=== PATIENT | female | born 1965 | race Caucasian/White ===

== ENCOUNTER 2018-01-09 10:26 | Observation (INO) | payer OTHER ==
[~2018-01-09] VITALS: Ht 167.6 cm; Wt 105.0 kg
[~2018-01-09 10:26] MED LIST: ALBU6.7H INH; CIPR500T4 PO; CLON1 PO; CYCL-36 PO; ENBR50IN3 SQ; FIORTAB4 PO; GLUCTAB PO; LEVO.05 PO; LEVS0.124 SL; LORTA5 PO; LOVA20TA PO; MAGN250T3 PO; MAXA10TA4 PO; MONT10TA2 PO; MULTTAB4 PO; PROT40TA PO; PROZ20CA11 PO; SPIR50TA21 PO; SUCR1TAB PO; TRAM50; TYLE500T PO; VITA400D PO; WELL150T PO; ZOFR4TAB3 SL
[2018-01-09 10:28] VITALS: BP 149/96; PULSE 108; RESP 16; TEMP 98.4; O2SAT 97
[2018-01-09] MEDS ORDERED: LEVO50TA4 PO (10:58)
[2018-01-09] MEDS ORDERED: VITA1000 PO (10:58)
[2018-01-09] MEDS ORDERED: ALDA50TA2 PO (10:58)
[2018-01-09] MEDS ORDERED: TRAZ1TAB14 PO (10:58)
[2018-01-09] MEDS ORDERED: BUPR300T PO (10:58)
[2018-01-09] MEDS ORDERED: MELO15TA20 PO (10:58)
[2018-01-09] MEDS ORDERED: ESSE250T (10:58)
[2018-01-09] MEDS ORDERED: MAXA10TA2 (10:58)
[2018-01-09] MEDS ORDERED: CYCL10TA PO (10:58)
[2018-01-09] MEDS ORDERED: HYOS0.1261 (10:58)
[2018-01-09] MEDS ORDERED: FLUO1TAB3 PO (10:58)
[2018-01-09] MEDS ORDERED: DIVA500T3 PO (10:58)
[2018-01-09] MEDS ORDERED: TRAM50TA PO (10:58)
[2018-01-09] MEDS ORDERED: OMEP20TA93 PO (10:58)
[2018-01-09] MEDS ORDERED: MONT10TA4 PO (10:58)
[2018-01-09] MEDS ORDERED: CLON1TAB PO (10:58)
[2018-01-09] MEDS ORDERED: METF500T PO (10:58)
[2018-01-09] MEDS ORDERED: CLON0.1T PO (10:58)
[2018-01-09] MEDS ORDERED: LOVA20TA PO (10:58)
[2018-01-09] MEDS ORDERED: MULTTAB67 PO (10:58)
[2018-01-09] MEDS ORDERED: POTA540T (10:58)
--- NOTE | 2018-01-09 11:25 | PD ---
HPI Chief Complaint: Pain: Acute or Chronic Time Seen by Provider: 10:55 Travel History International Travel<30 days: No Contact w/Intl Traveler<30days: No Traveled to known affect area: No History of Present Illness HPI This is a 52-year-old female who has a history of remote DVT who presents to the emergency department with 4 days of right leg pain and swelling, constant, moderate severity, throbbing behind her thigh to the mid calf. She is not currently on any anticoagulation. She has felt a little bit lightheaded and dizzy but she is attributed this to her medications. She says she has had some dark schools but she has a history of ulcerative colitis. She does have a rash on her legs but she is not sure when that showed up. She denies any easy bleeding or bruising. REPLACED BY [facility] Past Medical History ADD: Yes Arthritis: Yes Anxiety: Yes Depression: Yes Cancer: No Coronary Artery Disease: Yes Diabetes: Yes Patient Takes Glucophage: No Diverticulitis: Yes Fibromyalgia: Yes Gastrointestinal Disorders: Yes (REFLUX, BARRETS, UC) GERD: Yes Headaches: Yes Immune Disorder: No Kidney Stones: Yes Musculoskeletal: Yes (FIBROMYALGIA, DJD, OSTEOARTHRITIS) Neurologic: Yes (NEUROPATHY, PRUITITS) Psychiatric: Yes (PTSD, OCD INSOMNIA) Reproductive: Yes (PCOS) Migraines: Yes Thyroid Disease: Yes Triglycerides - High: Yes Influenza Vaccination: No ?: Not Past Surgical History Abdominal Surgery: Yes (COLON RESECTION) Oral Surgery: Yes (TONSILLECTOMY) Tympanostomy Tube: Yes Other Surgery: Yes (NASAL RECONSTRUCTION) Social History Alcohol Use: No Tobacco Use: No Substance Use: No Allergies-Medications (Allergen,Severity, Reaction): Coded Allergies: Sulfa (Sulfonamide Antibiotics) (Unverified Allergy, Intermediate, HIVES, 07/14/17) Reported Meds & Prescriptions Reported Meds & Active Scripts Active Reported Trazodone (Trazodone HCl) 150 Mg Tablet 150 Mg PO HS Tramadol (Tramadol HCl) 50 Mg Tab 50 Mg PO Q8H PRN Aldactone (Spironolactone) 50 Mg Tab 50 Mg PO BIDPC Potassium Citrate ER (Potassium Citrate) 5 Meq (540 Mg) Tablet.er Omeprazole 20 Mg Tab 20 Mg PO DAILY Multiple Vitamin 1 Tab 1 Tab PO DAILY Montelukast (Montelukast Sodium) 10 Mg Tab 10 Mg PO HS Metformin (Metformin HCl) 500 Mg Tab 500 Mg PO BIDPC Meloxicam 15 Mg Tab 15 Mg PO DAILY Maxalt (Rizatriptan Benzoate) 10 Mg Tab Magnesium 250 Mg Tab Lovastatin 20 Mg Tab 20 Mg PO DAILY Levothyroxine (Levothyroxine Sodium) 50 Mcg Tab 50 Mcg PO DAILY Hyoscyamine Sulfate 0.125 Mg Sub Fluoxetine (Fluoxetine HCl) 20 Mg Tab 20 Mg PO BID Divalproex ER (Divalproex Sodium) 500 Mg Tab 500 Mg PO DAILY Vitamin D-1000 (Cholecalciferol) 1,000 Unit Tab 1,000 Units PO DAILY Flexeril (Cyclobenzaprine HCl) 10 Mg Tab 10 Mg PO TID Clonidine (Clonidine HCl) 0.1 Mg Tab 0.1 Mg PO BID Clonazepam 1 Mg Tab 1 Mg PO TID Bupropion HCl ER 24 HR (Bupropion HCl) 300 Mg Tab 300 Mg PO DAILY Review of Systems Except as stated in HPI: all other systems reviewed are Neg Physical Exam Narrative GENERAL:Well appearing, no acute distress SKIN: Petechial rash over the bilateral lower extremities worse on the right. HEAD: Atraumatic. Normocephalic. EYES: Pupils equal and round. No injection or drainage. ENT: Moist mucous membranes NECK: Trachea midline. CARDIOVASCULAR: Regular rate and rhythm. No murmur appreciated. 2+ bilateral DP pulses with normal capillary refill. RESPIRATORY: Clear to auscultation. Breath sounds equal bilaterally. GASTROINTESTINAL: Abdomen soft, non-tender, nondistended. MUSCULOSKELETAL: Tender to palpation along the right posterior knee and posterior right calf NEUROLOGICAL: Awake and alert. No obvious cranial nerve deficits. Moving all extremities. PSYCHIATRIC: Appropriate mood and affect; insight and judgment normal. Data Data Last Documented VS Vital Signs Date Time Temp Pulse Resp B/P (MAP) Pulse Ox O2 Delivery O2 Flow Rate FiO2 01/09/18 10:28 98.4 108 16 149/96 (113) 97 Orders Orders Complete Blood Count With Diff (01/09/18 11:03) Comprehensive Metabolic Panel (01/09/18 11:03) Prothrombin Time / Inr (Pt) (01/09/18 11:03) Act Partial Throm Time (Ptt) (01/09/18 11:03) Us Leg Venous Doppler (01/09/18 ) ^ Insert Iv (01/09/18 11:03) Ct Pulmonary Angiogram (01/09/18 ) Labs Laboratory Tests Test 01/09/18 11:10 White Blood Count 6.5 TH/MM3 Red Blood Count 4.53 MIL/MM3 Hemoglobin 12.4 GM/DL Hematocrit 38.6 % Mean Corpuscular Volume 85.3 FL Mean Corpuscular Hemoglobin 27.4 PG Mean Corpuscular Hemoglobin Concent 32.1 % Red Cell Distribution Width 16.8 % Platelet Count 202 TH/MM3 Mean Platelet Volume 8.3 FL Neutrophils (%) (Auto) 68.3 % Lymphocytes (%) (Auto) 20.4 % Monocytes (%) (Auto) 7.2 % Eosinophils (%) (Auto) 3.5 % Basophils (%) (Auto) 0.6 % Neutrophils # (Auto) 4.4 TH/MM3 Lymphocytes # (Auto) 1.3 TH/MM3 Monocytes # (Auto) 0.5 TH/MM3 Eosinophils # (Auto) 0.2 TH/MM3 Basophils # (Auto) 0.0 TH/MM3 CBC Comment DIFF FINAL Differential Comment Prothrombin Time 10.2 SEC Prothromb Time International Ratio 1.0 RATIO Activated Partial Thromboplast Time 23.6 SEC Blood Urea Nitrogen 12 MG/DL Creatinine 1.02 MG/DL Random Glucose 89 MG/DL Total Protein 7.7 GM/DL Albumin 3.5 GM/DL Calcium Level 9.1 MG/DL Alkaline Phosphatase 86 U/L Aspartate Amino Transf (AST/SGOT) 17 U/L Alanine Aminotransferase (ALT/SGPT) 9 U/L Total Bilirubin 0.3 MG/DL Sodium Level 139 MEQ/L Potassium Level 3.8 MEQ/L Chloride Level 102 MEQ/L Carbon Dioxide Level 30.8 MEQ/L Anion Gap 6 MEQ/L Estimat Glomerular Filtration Rate 57 ML/MIN [facility] Medical Decision Making Medical Screen Exam Complete: Yes Emergency Medical Condition: Yes Interpretation(s) Afebrile, tachycardic No leukocytosis Electrolytes are reassuring Last 24 hours Impressions Lower Extremity Ultrasound 01/09/18 0000 Signed Impressions: Service Date/Time: Tuesday, January 09, 2018 11:34 - CONCLUSION: Positive DVT as described Sabino Duncan MD Differential Diagnosis Cellulitis, thrombocytopenia, DVT, pulmonary embolism Narrative Course This is a 52-year-old female who presents to the emergency department with right calf pain and leg pain. She has a history of remote DVT and has family history of factor V Leiden deficiency. Labs were obtained which were reassuring. Ultrasound demonstrates a DVT in the right lower extremity. Patient does acknowledge on review of systems that she has been somewhat short of breath and she was tachycardic on arrival. CT pulmonary angiogram will be obtained. Patient will be dispositioned by Abena Santiago MD Jan 09, 2018 11:25
[2018-01-09 11:28] LABS: AUTOMATED NEUTROPHIL # 4.4 TH/MM3 (1.8-7.7); BASOPHIL % 0.6 % (0.0-2.0); EOSINOPHIL # 0.2 TH/MM3 (0-0.4); EOSINOPHIL % 3.5 % (0.0-4.0); HEMATOCRIT 38.6 % (35.0-46.0); HEMOGLOBIN 12.4 GM/DL (11.6-15.3); LYMPH % 20.4 % (9.0-44.0); LYMPHOCYTE # 1.3 TH/MM3 (1.0-4.8); MEAN CELL VOLUME 85.3 FL (80.0-100.0); MEAN CORPUSCULAR HEMOGLOBIN 27.4 PG (27.0-34.0); MEAN CORPUSCULAR HGB CONC 32.1 % (32.0-36.0); MEAN PLATELET VOLUME 8.3 FL (7.0-11.0); MONO % 7.2 % (0.0-8.0); MONOCYTE # 0.5 TH/MM3 (0-0.9); NEUT % 68.3 % (16.0-70.0); PLATELET COUNT 202 TH/MM3 (150-450); RED BLOOD COUNT 4.53 MIL/MM3 (4.00-5.30); RED CELL DISTRIBUTION WIDTH 16.8 % (11.6-17.2); WHITE BLOOD COUNT 6.5 TH/MM3 (4.0-11.0)
[2018-01-09 11:37] LABS: PROTHROMBIN TIME - PATIENT 10.2 SEC (9.8-11.6)
[2018-01-09 11:42] LABS: ALBUMIN 3.5 GM/DL (3.4-5.0); AST (GOT) 17 U/L (15-37); BICARBONATE 30.8 MEQ/L (21.0-32.0); BLOOD UREA NITROGEN 12 MG/DL (7-18); CALCIUM 9.1 MG/DL (8.5-10.1); CHLORIDE 102 MEQ/L (98-107); CREATININE 1.02 MG/DL (0.50-1.00); GLOMERULAR FILTRATION RATE 57 ML/MIN (>89); GLUCOSE,RANDOM 89 MG/DL (74-106); SODIUM (NA) 139 MEQ/L (136-145)
[2018-01-09 11:43] LABS: ALT (GPT) 9 U/L (10-53)
[2018-01-09 11:45] LABS: ALKALINE PHOSPHATASE 86 U/L (45-117); TOTAL BILIRUBIN ADULT 0.3 MG/DL (0.2-1.0); TOTAL PROTEIN 7.7 GM/DL (6.4-8.2)
--- NOTE | 2018-01-09 12:00 | RADRPT ---
EXAM DATE/TIME: 01/09/2018 11:34 [facility] COMPARISON: No previous studies available for comparison. INDICATIONS : Right leg swelling and pain. MEDICAL HISTORY : Diverticulitis. Renal calculi. Osteoarthritis. Thyroid disease. Neuropathy. Pruititis. Migraines. Coronary artery disease. Hyperlipidemia. Melendez's esophagus. fibromyalgia. arthritis. disc degenerat ion disease. diabetes. gerd. pcos. insomnia. ptsd. anxiety. SURGICAL HISTORY : Tonsillectomy. Colon resection. Tympanostomy tube. Left knee and left hand orthopedic surgery. Nasa l reconstruction. ENCOUNTER: Initial ACUITY: 4 - 6 days PAIN SCORE: 6/10 LOCATION: Right leg. TECHNIQUE: Venous ultrasound of the leg was performed from the inguinal ligament to the proximal calf. Real-tez e, color Doppler and spectral tracing, compression and augmentation techniques were used. FINDINGS: Deep venous thrombosis which is extensive extending from the superficial femoral vein and kidney post erior tibial vein portions of which aren't fully occlusive including superficial femoral vein and pos terior tibial vein and partial in other areas CONCLUSION: Positive DVT as described Sabino Duncan MD on January 09, 2018 at 11:56 Board Certified Radiologist. This report was verified electronically.
[2018-01-09] MEDS ORDERED: IOHEXOL 350 MG/ML 10 ML VIAL (for RAD DIAG) IVCONTRAST ONE (14:00)
--- NOTE | 2018-01-09 14:28 | RADRPT ---
EXAM DATE/TIME: 01/09/2018 13:58 [facility] COMPARISON: No previous studies available for comparison. INDICATIONS : Shortness of breath. IV CONTRAST: 66 cc Omnipaque 350 (iohexol) IV RADIATION DOSE: 11.02 CTDIvol (mGy) MEDICAL HISTORY : Gastroesophageal reflux disease. diabetes, deep vein thrombosis SURGICAL HISTORY : Colon resection. ENCOUNTER: Initial ACUITY: 1 day PAIN SCALE: 0/10 LOCATION: Bilateral chest TECHNIQUE: Volumetric scanning of the chest was performed using a pulmonary embolism protocol MIP images were re constructed. Using automated exposure control and adjustment of the mA and/or kV according to patien t size, radiation dose was kept as low as reasonably achievable to obtain optimal diagnostic quality images. DICOM format image data is available electronically for review and comparison. Follow-up recommendations for detected pulmonary nodules are based at a minimum on nodule size and pa tient risk factors according to Fleischner Society Guidelines. FINDINGS: PULMONARY ARTERIES: There are multiple emboli in the right lower lobe pulmonary artery without total obstruction. LUNGS: There is no consolidation or pneumothorax . No concerning pulmonary nodule is visualized. PLEURAE: There is no pleural thickening or pleural effusion. MEDIASTINUM: There is good visualization of the great vessels of the middle mediastinum. No evidence of mediastin al or hilar adenopathy/mass. MUSCULOSKELETAL: Within normal limits for patient age. MISCELLANEOUS: The visualized upper abdominal organs demonstrate no acute abnormality. CONCLUSION: Positive for pulmonary embolization right lower lobe pulmonary artery. Sabino Duncan MD on January 09, 2018 at 14:21 Board Certified Radiologist. This report was verified electronically.
[2018-01-09] MEDS ORDERED: RIVAROXABAN 15 MG TAB PO ONE (15:30)
--- NOTE | 2018-01-09 15:34 | PD ---
Data Data Last Documented VS Vital Signs Date Time Temp Pulse Resp B/P (MAP) Pulse Ox O2 Delivery O2 Flow Rate FiO2 01/09/18 10:28 98.4 108 16 149/96 (113) 97 Orders Orders Complete Blood Count With Diff (01/09/18 11:03) Comprehensive Metabolic Panel (01/09/18 11:03) Prothrombin Time / Inr (Pt) (01/09/18 11:03) Act Partial Throm Time (Ptt) (01/09/18 11:03) Us Leg Venous Doppler (01/09/18 ) ^ Insert Iv (01/09/18 11:03) Ct Pulmonary Angiogram (01/09/18 ) Iohexol 350 Inj (Omnipaque 350 Inj) (01/09/18 14:00) Rivaroxaban (Xarelto) (01/09/18 15:30) Admit Order (Ed Use Only) (01/09/18 ) Labs Laboratory Tests Test 01/09/18 11:10 White Blood Count 6.5 TH/MM3 Red Blood Count 4.53 MIL/MM3 Hemoglobin 12.4 GM/DL Hematocrit 38.6 % Mean Corpuscular Volume 85.3 FL Mean Corpuscular Hemoglobin 27.4 PG Mean Corpuscular Hemoglobin Concent 32.1 % Red Cell Distribution Width 16.8 % Platelet Count 202 TH/MM3 Mean Platelet Volume 8.3 FL Neutrophils (%) (Auto) 68.3 % Lymphocytes (%) (Auto) 20.4 % Monocytes (%) (Auto) 7.2 % Eosinophils (%) (Auto) 3.5 % Basophils (%) (Auto) 0.6 % Neutrophils # (Auto) 4.4 TH/MM3 Lymphocytes # (Auto) 1.3 TH/MM3 Monocytes # (Auto) 0.5 TH/MM3 Eosinophils # (Auto) 0.2 TH/MM3 Basophils # (Auto) 0.0 TH/MM3 CBC Comment DIFF FINAL Differential Comment Prothrombin Time 10.2 SEC Prothromb Time International Ratio 1.0 RATIO Activated Partial Thromboplast Time 23.6 SEC Blood Urea Nitrogen 12 MG/DL Creatinine 1.02 MG/DL Random Glucose 89 MG/DL Total Protein 7.7 GM/DL Albumin 3.5 GM/DL Calcium Level 9.1 MG/DL Alkaline Phosphatase 86 U/L Aspartate Amino Transf (AST/SGOT) 17 U/L Alanine Aminotransferase (ALT/SGPT) 9 U/L Total Bilirubin 0.3 MG/DL Sodium Level 139 MEQ/L Potassium Level 3.8 MEQ/L Chloride Level 102 MEQ/L Carbon Dioxide Level 30.8 MEQ/L Anion Gap 6 MEQ/L Estimat Glomerular Filtration Rate 57 ML/MIN MDM Supervised Visit with JORDIN: No Narrative Course 51-year-old woman with suspicion for DVT, fund of a DVT and ultrasound, also some shortness of breath on the PE. History of DVT in the past. Family history of factor V Leiden. We will plan on Xarelto, admission, close monitoring. Diagnosis Primary Impression: Pulmonary embolism Admitting Information Admitting Physician Requests: Observation Pee Stevenson MD Jan 09, 2018 15:34
--- NOTE | 2018-01-09 16:33 | HHI.HP ---
HPI Service [facility] Hospitalists Primary Care Physician Tevin Han III, MD Admission Diagnosis Pulmonary embolus Chief Complaint: RLE swelling Travel History International Travel<30 Days: No Contact w/Intl Traveler <30 Da: No Traveled to Known Affected Are: No History of Present Illness Mrs. Bell is a pleasant 52 y/o WF with Hx of DVT around 18 years ago thought to be related to being on OCP and sedentary at that time, Hypothyroidism, Hyperlipidemia, GERD, Anxiety/depression who [place] [facility] complaints of RLE swelling and pain. She reports that the symptoms began around 4 days ago when she had worsening right LE swelling and throbbing behind her thigh to the mid calf. Pt states that she has been more sedentary recently at work, sitting for 5-6 hours at a time on the computer. Her half sister was recently diagnosed with Factor V Leiden but she has not had workup for this yet. Pt denies any personal hx of cancer. In the ED RLE US revealed an extensive DVT extending from the superficial femoral vein and posterior tibial vein portions of which aren't fully occlusive. She had reported to the ED physician some mild SOB and was noted to be tachycardiac at admission so Pulmonary angiogram was performed which was positive for pulmonary embolization right lower lobe pulmonary artery. Pt is being admitted to monitoring overnight. She was given a dose of Xarelto in the ED but pt would rather be on Eliquis as her takes the same medication so she knows she can afford the copay. Pt reports that when she had her previous DVT 18 years ago she was on Coumadin. Review of Systems Constitutional: DENIES: Fever, Chills, Dizziness, Change in appetite Eyes: DENIES: Vision loss Ears, nose, mouth, throat: DENIES: Hearing loss Respiratory: COMPLAINS OF: Shortness of breath, DENIES: Cough Cardiovascular: COMPLAINS OF: Lower Extremity Edema, DENIES: Chest pain Gastrointestinal: DENIES: Abdominal pain, Constipation, Nausea, Vomiting Genitourinary: DENIES: Hematuria, Dysuria Musculoskeletal: COMPLAINS OF: Joint pain Integumentary: COMPLAINS OF: Rash Neurologic: DENIES: Headache Psychiatric: DENIES: Confusion Past Family Social History Past Medical History GERD Melendez's esophagus Hx of UC Allergic rhinitis Fibromyalgia Osteoarthritis ?Rheumatoid arthritis, ?Sjgren's syndrome, pt follows with Dr. 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 Spinal stenosis Neuropathy thought to be related to nerve impingement per the pt Migraine headaches Hx of kidney stones Hx of DVT around 18 years ago thought to be related to being on OCP and sedentary at that time Hypothyroidism Hyperlipidemia PCOS Hx of esophageal stricture s/p dilation Zenker's diverticulum ADD OCD Insomnia Past Surgical History Tonsillectomy Left hand ganglion cyst removal Left knee mass removal, reportedly benign Partial colectomy Septoplasty Left foot plantar fasciotomy Reported Medications -Omeprazole 20 Mg PO DAILY -Multiple Vitamin 1 Tab PO DAILY -Montelukast 10 Mg PO HS -Metformin 500 Mg PO BIDPC for PCOS -Maxalt (Rizatriptan Benzoate) 10 Mg Tab PRN Migraines -Magnesium 250 Mg Tab -Lovastatin 20 Mg Tab 20 Mg PO DAILY -Levothyroxine 50 Mcg PO DAILY -Hyoscyamine Sulfate 0.125 Mg Sub -Fluoxetine 20 Mg PO BID for depression/anxiety/PTSD -Divalproex ER 500 Mg PO DAILY for migraines -Flexeril 10 Mg PO TID -Clonidine 0.1 Mg PO HS for night sweats -Clonazepam 1 Mg PO TID -Bupropion HCl ER 24 HR 300 Mg PO DAILY --Trazodone 200 Mg PO HS for insomnia --Tramadol 50 Mg PO Q8H for fibromyalgia and osteoarthritis --Aldactone 100 Mg PO DAILY --Potassium Citrate 10MG PO BID --Meloxicam 15 Mg PO HS --Vitamin D 4,000 Unit PO DAILY Allergies: Coded Allergies: Sulfa (Sulfonamide Antibiotics) (Unverified Allergy, Intermediate, HIVES, 07/14/17) Family History Sister with recently diagnosed Factor V Leiden Social History No reported alcohol or tobacco use Physical Exam Vital Signs Vital Signs Date Time Temp Pulse Resp B/P (MAP) Pulse Ox O2 Delivery O2 Flow Rate FiO2 01/09/18 10:28 98.4 108 16 149/96 (113) 97 Physical Exam GENERAL: This is a well-nourished, well-developed patient, in no apparent distress. HEENT: Atraumatic. Normocephalic. No temporal or scalp tenderness. No scleral icterus. Airway patent. NECK: Trachea midline, supple, nontender, no meningeal signs. CARDIO: Regular RESP: CTA bilaterally. No wheezes, rales, or rhonchi. ABD: +BS, soft, non-tender, nondistended. EXT: RLE edema and tenderness with palpation of the right calf NEURO: Awake and alert. Motor and sensory grossly within normal limits. Normal speech. Laboratory Laboratory Tests Test 01/09/18 11:10 White Blood Count 6.5 Red Blood Count 4.53 Hemoglobin 12.4 Hematocrit 38.6 Mean Corpuscular Volume 85.3 Mean Corpuscular Hemoglobin 27.4 Mean Corpuscular Hemoglobin Concent 32.1 Red Cell Distribution Width 16.8 Platelet Count 202 Mean Platelet Volume 8.3 Neutrophils (%) (Auto) 68.3 Lymphocytes (%) (Auto) 20.4 Monocytes (%) (Auto) 7.2 Eosinophils (%) (Auto) 3.5 Basophils (%) (Auto) 0.6 Neutrophils # (Auto) 4.4 Lymphocytes # (Auto) 1.3 Monocytes # (Auto) 0.5 Eosinophils # (Auto) 0.2 Basophils # (Auto) 0.0 CBC Comment DIFF FINAL Differential Comment Prothrombin Time 10.2 Prothromb Time International Ratio 1.0 Activated Partial Thromboplast Time 23.6 Blood Urea Nitrogen 12 Creatinine 1.02 Random Glucose 89 Total Protein 7.7 Albumin 3.5 Calcium Level 9.1 Alkaline Phosphatase 86 Aspartate Amino Transf (AST/SGOT) 17 Alanine Aminotransferase (ALT/SGPT) 9 Total Bilirubin 0.3 Sodium Level 139 Potassium Level 3.8 Chloride Level 102 Carbon Dioxide Level 30.8 Anion Gap 6 Estimat Glomerular Filtration Rate 57 Result Diagram: 01/09/18 1110 01/09/18 1110 Imaging Last Impressions Lower Extremity Ultrasound 01/09/18 0000 Signed Impressions: Service Date/Time: Tuesday, January 09, 2018 11:34 - CONCLUSION: Positive DVT as described Sabino Duncan MD CT Angiography 01/09/18 0000 Signed Impressions: Service Date/Time: Tuesday, January 09, 2018 13:58 - CONCLUSION: Positive for pulmonary embolization right lower lobe pulmonary artery. MD Andrey Snowden VTE Risk Assessment Caprini VTE Risk Assessment: Mod/High Risk (score >= 2) Caprini Risk Assessment Model Point Value = 1 Point Value = 2 Point Value = 3 Point Value = 5 Age 41-60 Minor surgery BMI > 25 kg/m2 Swollen legs Varicose veins or History of unexplained or recurrent spontaneous Oral contraceptives or hormone replacement Sepsis (< 1 month) Serious lung disease, including pneumonia (< 1 month) Abnormal pulmonary function Acute myocardial infarction Congestive heart failure (< 1 month) History of inflammatory bowel disease Medical patient at bed rest Age 61-74 Arthroscopic surgery Major open surgery (> 45 min) Laparoscopic surgery (> 45 min) Malignancy Confined to bed (> 72 hours) Immobilizing plaster cast Central venous access Age >= 75 History of VTE Family history of VTE Factor V Leiden Prothrombin [id number] Lupus anticoagulant Anticardiolipin antibodies Elevated serum homocysteine Heparin-induced thrombocytopenia Other congenital or acquired thrombophilia Stroke (< 1 month) Elective arthroplasty Hip, pelvis, or leg fracture Acute spinal cord injury (< 1 month) Prophylaxis Regimen Total Risk Factor Score Risk Level Prophylaxis Regimen 0-1 Low Early ambulation 2 Moderate Order ONE of the following: *Sequential Compression Device (SCD) *Heparin 5000 units SQ BID 3-4 Higher Order ONE of the following medications: *Heparin 5000 units SQ TID *Enoxaparin/Lovenox 40 mg SQ daily (WT < 150 kg, CrCl > 30 mL/min) *Enoxaparin/Lovenox 30 mg SQ daily (WT < 150 kg, CrCl > 10-29 mL/min) *Enoxaparin/Lovenox 30 mg SQ BID (WT < 150 kg, CrCl > 30 mL/min) AND/OR *Sequential Compression Device (SCD) 5 or more Highest Order ONE of the following medications: *Heparin 5000 units SQ TID (Preferred with Epidurals) *Enoxaparin/Lovenox 40 mg SQ daily (WT < 150 kg, CrCl > 30 mL/min) *Enoxaparin/Lovenox 30 mg SQ daily (WT < 150 kg, CrCl > 10-29 mL/min) *Enoxaparin/Lovenox 30 mg SQ BID (WT < 150 kg, CrCl > 30 mL/min) AND *Sequential Compression Device (SCD) Assessment and Plan Problem List: (1) Pulmonary embolism ICD Codes: I26.99 - Other pulmonary embolism without acute cor pulmonale Status: Acute Plan: Pulmonary Embolism RLE DVT - Pt is a 52 y/o WF with Hx of DVT around 18 years ago thought to be related to being on OCP and sedentary at that time, Hypothyroidism, Hyperlipidemia, GERD, Anxiety/depression who [place] [facility] with complaints of RLE swelling and pain. - Symptoms began around 4 days ago when she had worsening right LE swelling and throbbing behind her thigh to the mid calf. Pt states that she has been more sedentary recently at work, sitting for 5-6 hours at a time on the computer. Her half sister was recently diagnosed with Factor V Leiden but she has not had workup for this yet. - RLE US revealed an extensive DVT extending from the superficial femoral vein and posterior tibial vein portions of which aren't fully occlusive. - She had reported to the ED physician some mild SOB and was noted to be tachycardiac at admission so pulmonary angiogram was performed which was positive for pulmonary embolization right lower lobe pulmonary artery. - She was given a dose of Xarelto in the ED but pt would rather be on Eliquis as her takes the same medication so she knows she can afford the copay. - Start Eliquis 10mg BID x 7 days, tomorrow at 0600. After 7 days she will be decreased to 5mg po BID dosing - Pt is not currently requiring supplemental O2 at rest. Walk test in AM - PT evaluation in AM - Supportive care Hypothyroidism - Home meds resumed GERD - PPI Anxiety/Depression OCD PTSD - Home meds resumed Fibromyalgia - Home meds resumed (2) DVT (deep venous thrombosis) ICD Codes: I82.409 - Acute embolism and thrombosis of unspecified deep veins of unspecified lower extremity (3) Anxiety and depression ICD Codes: F41.8 - Other specified anxiety disorders (4) GERD (gastroesophageal reflux disease) ICD Codes: K21.9 - Gastro-esophageal reflux disease without esophagitis (5) Hx of migraine headaches ICD Codes: Z86.69 - Personal history of other diseases of the nervous system and sense organs Assessment and Plan Patient examined. Assessment and plan formulated with Gabrielle Torres PA-C. I agree with the above. rle dvt. right lung PE. pt claims more sedentary remote hx dvt and 6m coumadin sister with factor v leiden eliquis bid. walk test tomorrow. d/c tomorrow if stable. Problem Qualifiers (1) Pulmonary embolism: Qualified Codes: I26.99 - Other pulmonary embolism without acute cor pulmonale Gabrielle Torres Jan 09, 2018 16:32 Levar Solano MD Jan 09, 2018 17:16
[2018-01-09] MEDS ORDERED: ACETAMINOPHEN 325 MG TAB PO PRN (16:45)
[2018-01-09] MEDS ORDERED: ONDANSETRON HCL 4 MG/2 ML VIAL IV PRN (16:45)
[2018-01-09] MEDS ORDERED: TRAZ100T10 PO (17:20)
[2018-01-09 17:53] VITALS: BP 141/76
[2018-01-09] MEDS: clonazePAM 1 MG TAB PO SCH (17:58)
[2018-01-09] MEDS ORDERED: CYCLOBENZAPRINE HCL 10 MG TAB PO SCH (18:00)
[2018-01-09 20:34] VITALS: BP 115/66; PULSE 90; RESP 18; TEMP 97.9; O2SAT 92
[2018-01-09 20:52] VITALS: PULSE 79; RESP 18; O2SAT 97
[2018-01-09] MEDS ORDERED: traZODone HCL 100 MG TAB PO SCH (21:00)
[2018-01-09] MEDS ORDERED: MONTELUKAST SODIUM 10 MG TAB PO SCH (21:00)
[2018-01-09] MEDS ORDERED: cloNIDine HCL 0.1 MG TAB PO SCH (21:00)
[2018-01-09] MEDS: FLUoxetine HCL 20 MG CAP PO SCH (22:43)
[2018-01-09] MEDS: CYCLOBENZAPRINE HCL 10 MG TAB PO SCH (22:44)
[2018-01-09] MEDS: traMADol HCL 50 MG TAB PO SCH (22:45)
[2018-01-09 22:55] VITALS: O2SAT 95
[2018-01-09 23:31] VITALS: BP 102/55; PULSE 92; RESP 18; TEMP 97.9; O2SAT 94
[2018-01-10 04:01] VITALS: BP 122/68; PULSE 86; RESP 18; TEMP 97.8; O2SAT 93
[2018-01-10] MEDS: traMADol HCL 50 MG TAB PO SCH (05:46)
[2018-01-10] MEDS ORDERED: LEVOTHYROXINE SODIUM 50 MCG TAB PO SCH (06:00)
[2018-01-10] MEDS ORDERED: APIXABAN 5 MG TABLET PO SCH (06:00)
[2018-01-10 08:26] VITALS: BP 110/62; PULSE 83; RESP 20; TEMP 98.6; O2SAT 96
--- NOTE | 2018-01-10 08:43 | HHI.PR ---
Subjective Remarks Pt feeling well today Some pain in the right calf when walking. She passed her walk test this morning and has not required any supplemental oxygen Objective Vitals Vital Signs Date Time Temp Pulse Resp B/P (MAP) Pulse Ox O2 Delivery O2 Flow Rate FiO2 01/10/18 08:26 98.6 83 20 110/62 (78) 96 01/10/18 04:01 97.8 86 18 122/68 (86) 93 01/09/18 23:31 97.9 92 18 102/55 (71) 94 01/09/18 22:55 95 21 01/09/18 20:52 79 18 97 01/09/18 20:34 97.9 90 18 115/66 (82) 92 01/09/18 17:53 141/76 (97) 01/09/18 10:28 98.4 108 16 149/96 (113) 97 Result Diagram: 01/09/18 1110 01/09/18 1110 Other Results Laboratory Tests Test 01/09/18 11:10 White Blood Count 6.5 TH/MM3 Red Blood Count 4.53 MIL/MM3 Hemoglobin 12.4 GM/DL Hematocrit 38.6 % Mean Corpuscular Volume 85.3 FL Mean Corpuscular Hemoglobin 27.4 PG Mean Corpuscular Hemoglobin Concent 32.1 % Red Cell Distribution Width 16.8 % Platelet Count 202 TH/MM3 Mean Platelet Volume 8.3 FL Neutrophils (%) (Auto) 68.3 % Lymphocytes (%) (Auto) 20.4 % Monocytes (%) (Auto) 7.2 % Eosinophils (%) (Auto) 3.5 % Basophils (%) (Auto) 0.6 % Neutrophils # (Auto) 4.4 TH/MM3 Lymphocytes # (Auto) 1.3 TH/MM3 Monocytes # (Auto) 0.5 TH/MM3 Eosinophils # (Auto) 0.2 TH/MM3 Basophils # (Auto) 0.0 TH/MM3 CBC Comment DIFF FINAL Differential Comment Prothrombin Time 10.2 SEC Prothromb Time International Ratio 1.0 RATIO Activated Partial Thromboplast Time 23.6 SEC Blood Urea Nitrogen 12 MG/DL Creatinine 1.02 MG/DL Random Glucose 89 MG/DL Total Protein 7.7 GM/DL Albumin 3.5 GM/DL Calcium Level 9.1 MG/DL Alkaline Phosphatase 86 U/L Aspartate Amino Transf (AST/SGOT) 17 U/L Alanine Aminotransferase (ALT/SGPT) 9 U/L Total Bilirubin 0.3 MG/DL Sodium Level 139 MEQ/L Potassium Level 3.8 MEQ/L Chloride Level 102 MEQ/L Carbon Dioxide Level 30.8 MEQ/L Anion Gap 6 MEQ/L Estimat Glomerular Filtration Rate 57 ML/MIN Imaging Last Impressions Lower Extremity Ultrasound 01/09/18 0000 Signed Impressions: Service Date/Time: Tuesday, January 09, 2018 11:34 - CONCLUSION: Positive DVT as described Sabino Duncan MD CT Angiography 01/09/18 0000 Signed Impressions: Service Date/Time: Tuesday, January 09, 2018 13:58 - CONCLUSION: Positive for pulmonary embolization right lower lobe pulmonary artery. Sabino Duncan MD Objective Remarks General: NAD, AAOx3 Chest: CTA Cardiac: Regular Abd: +BS, soft ND/NT Ext: RLE swelling and some calf tenderness to palpation A/P Problem List: (1) Pulmonary embolism ICD Codes: I26.99 - Other pulmonary embolism without acute cor pulmonale Status: Acute Plan: Pulmonary Embolism RLE DVT - Pt is a 52 y/o WF with Hx of DVT around 18 years ago thought to be related to being on OCP and sedentary at that time, Hypothyroidism, Hyperlipidemia, GERD, Anxiety/depression who presented to the ED at [facility] on 01/09/18 with complaints of RLE swelling and pain. - Symptoms began around 4 days ago when she had worsening right LE swelling and throbbing behind her thigh to the mid calf. Pt states that she has been more sedentary recently at work, sitting for 5-6 hours at a time on the computer. Her half sister was recently diagnosed with Factor V Leiden but she has not had workup for this yet. - RLE US revealed an extensive DVT extending from the superficial femoral vein and posterior tibial vein portions of which aren't fully occlusive. - She had reported to the ED physician some mild SOB and was noted to be tachycardiac at admission so pulmonary angiogram was performed which was positive for pulmonary embolization right lower lobe pulmonary artery. - She was given a dose of Xarelto in the ED but pt would rather be on Eliquis as her takes the same medication so she knows she can afford the copay. - Cont Eliquis 10mg BID x 7 days (through 01/17/18). After 7 days she will be decreased to 5mg po BID dosing - Pt passed walk test this morning. - PT evaluation today - We will provide a copay card to the patient for the Eliquis and anticipate discharge later today Hypothyroidism - Home meds resumed GERD - PPI Anxiety/Depression OCD PTSD - Home meds resumed Fibromyalgia - Home meds resumed (2) DVT (deep venous thrombosis) ICD Codes: I82.409 - Acute embolism and thrombosis of unspecified deep veins of unspecified lower extremity (3) Anxiety and depression ICD Codes: F41.8 - Other specified anxiety disorders (4) GERD (gastroesophageal reflux disease) ICD Codes: K21.9 - Gastro-esophageal reflux disease without esophagitis (5) Hx of migraine headaches ICD Codes: Z86.69 - Personal history of other diseases of the nervous system and sense organs Assessment and Plan Patient examined. Assessment and plan formulated with Gabrielle Torres PA-C. I agree with the above. right leg dvt. right lung PE passed walk test. pt eager for d/c. feels better. no work next week. eliquis and close pcp f/u. I informed her to closely f/u with pcp and notify immediately should her leg not continue to improve or worsen. Problem Qualifiers (1) Pulmonary embolism: Qualified Codes: I26.99 - Other pulmonary embolism without acute cor pulmonale (2) DVT (deep venous thrombosis): Qualified Codes: I82.491 - Acute embolism and thrombosis of other specified deep vein of right lower extremity Gabrielle Torres Jan 10, 2018 08:43 Levar Solano MD Jan 10, 2018 14:04
[2018-01-10] MEDS ORDERED: APIX5TAB PO (08:53)
--- NOTE | 2018-01-10 08:56 | HHI.DCPOC ---
Discharge Care Plan Diagnosis: (1) Pulmonary embolism (2) DVT (deep venous thrombosis) (3) Hx of migraine headaches (4) Anxiety and depression (5) GERD (gastroesophageal reflux disease) Goals to Promote Your Health - Patient is to take Eliquis 10mg twice daily through 01/17/18, then decrease the dose to 5mg twice daily on 01/18/18. - Followup with Dr. Tevni Han in 1 week, call for an appt - If you have any increased swelling or pain in the lower extremities or if you start having increased shortness of breath call your PCP and/or report back to the ER for further evaluation. Directions to Meet Your Goals Take your medications as prescribed Follow your dietary instruction Follow activity as directed Keep your appointments as scheduled Take your immunizations and boosters as scheduled If your symptoms worsen call your PCP, if no PCP go to Urgent Care Center or Emergency Room Smoking is Dangerous to Your Health. Avoid second hand smoke Call the 24-hour hour crisis hotline for domestic abuse at Gabrielle Torres Jan 10, 2018 08:56
[2018-01-10] MEDS ORDERED: DIVALPROEX SODIUM E.R. 500 MG TAB PO SCH (09:00)
[2018-01-10] MEDS ORDERED: buPROPion HCL 150 MG SUSTAINED RELEASE TAB PO SCH (09:00)
[2018-01-10] MEDS ORDERED: PRAVASTATIN SOD 20 MG TAB PO SCH (09:00)
[2018-01-10] MEDS ORDERED: PANTOPRAZOLE SOD 20 MG DELAYED RELEASE TAB PO SCH (09:00)
[2018-01-10] MEDS ORDERED: SPIRONOLACTONE 100 MG TAB PO SCH (09:00)
[2018-01-10] MEDS: clonazePAM 1 MG TAB PO SCH (09:53)
[2018-01-10] MEDS: FLUoxetine HCL 20 MG CAP PO SCH (09:53)
[2018-01-10] MEDS: CYCLOBENZAPRINE HCL 10 MG TAB PO SCH (09:54)
[2018-01-10 11:03] VITALS: O2SAT 94
== END 2018-01-10 12:26 | disposition home or self-care (01) ==
LOC: NEPC 10:26 → NEDA 15:28 → NEPGCP 17:50
PROVIDERS: ADMIT Hospitalist; ATTEND Hospitalist
DX: I26.99 Other pulmonary embolism without acute cor pulmonale (principal); I82.491 Acute embolism and thrombosis of other specified deep vein of right lower extremity; I82.449 Acute embolism and thrombosis of unspecified tibial vein; E78.5 Hyperlipidemia, unspecified; N18.3 Chronic kidney disease, stage 3 (moderate); E11.22 Type 2 diabetes mellitus with diabetic chronic kidney disease; E28.2 Polycystic ovarian syndrome; K21.9 Gastro-esophageal reflux disease without esophagitis; K22.70 Barrett's esophagus without dysplasia; M79.7 Fibromyalgia; E03.9 Hypothyroidism, unspecified; I25.10 Atherosclerotic heart disease of native coronary artery without angina pectoris; K22.5 Diverticulum of esophagus, acquired; M06.9 Rheumatoid arthritis, unspecified; F32.9 Major depressive disorder, single episode, unspecified; Z87.442 Personal history of urinary calculi
CPT/HCPCS: 71275; 80053; 85025; 85610; 85730; 93971; 94618; 97161; 99285; G0378; G8987; G8988; Q9967

== ENCOUNTER 2018-05-15 12:27 | Emergency (ER) | payer OTHER ==
[~2018-05-15] VITALS: Ht 167.6 cm; Wt 108.5 kg
[~2018-05-15 12:27] MED LIST changes: -ALBU6.7H INH; +ALDA50TA2 PO; +APIX5TAB PO; +BUPR300T PO; -CIPR500T4 PO; +CLON0.1T PO; -CLON1 PO; +CLON1TAB PO; -CYCL-36 PO; +CYCL10TA PO; +DIVA500T3 PO; -ENBR50IN3 SQ; +ESSE250T; -FIORTAB4 PO; +FLUO1TAB3 PO; -GLUCTAB PO; +HYOS0.1261; -LEVO.05 PO; +LEVO50TA4 PO; -LEVS0.124 SL; -LORTA5 PO; -MAGN250T3 PO; +MAXA10TA2; -MAXA10TA4 PO; +METF500T PO; -MONT10TA2 PO; +MONT10TA4 PO; -MULTTAB4 PO; +MULTTAB67 PO; +OMEP20TA93 PO; -PROT40TA PO; -PROZ20CA11 PO; -SPIR50TA21 PO; -SUCR1TAB PO; -TRAM50; +TRAM50TA PO; +TRAZ100T10 PO; -TYLE500T PO; +VITA1000 PO; -VITA400D PO; -WELL150T PO; -ZOFR4TAB3 SL
[2018-05-15 12:37] VITALS: BP 155/87; PULSE 101; RESP 18; TEMP 98.5; O2SAT 99
[2018-05-15 12:57] LABS: BILIRUBIN, URINE NEG (NEG); BLOOD, URINE NEG (NEG); GLUCOSE,URINE NEG (NEG); KETONE, URINE NEG (NEG); NITRITE,URINE NEG (NEG); PH, URINE 6.5 (5.0-8.5); URINE COLOR YELLOW (YELLW/STRAW); URINE LEUKOCYTE ESTERASE SMALL (NEG)
[2018-05-15 13:06] LABS: MUCUS URINE RARE /lpf (OCC); WHITE BLOOD CELL CLUMPS RARE
[2018-05-15 13:07] LABS: BACTERIA, URINE FEW /hpf
--- NOTE | 2018-05-15 13:10 | PD ---
HPI Chief Complaint: GI Complaint Time Seen by Provider: 12:56 Travel History International Travel<30 days: No Contact w/Intl Traveler<30days: No Traveled to known affect area: No History of Present Illness HPI The patient was seen and examined in the presence of the nurse. This patient complains of abdominal pain. Location is left lower quadrant. Duration 2 days. Severity is moderate. She has history of ulcerative colitis and has had a partial colectomy. She denies rectal bleeding or fever. It is common for her to have diarrhea. No vomiting. No alleviating factors. No exacerbating factors. She takes Eliquis forever due to hypercoagulable state PFSH Past Medical History ADD: Yes Arthritis: Yes Asthma: No Autoimmune Disease: Yes (FACTOR V LEIDEN) Blood Disorders: No Anxiety: Yes Depression: Yes Heart Rhythm Problems: No Cancer: No Cardiovascular Problems: Yes (PE) High Cholesterol: Yes Chemotherapy: No Chest Pain: No Congestive Heart Failure: No COPD: No Coronary Artery Disease: Yes Diabetes: No Diverticulitis: Yes Deep Vein Thrombosis: Yes Endocrine: Yes Fibromyalgia: Yes Gastrointestinal Disorders: Yes ( BARRETS, UC) GERD: Yes Genitourinary: No Headaches: Yes Immune Disorder: No Kidney Stones: Yes Musculoskeletal: Yes (Fibromyalgia) Neurologic: No Psychiatric: Yes ( PTSD) Reproductive: Yes (Polycystic Ovarian Syndrome) Respiratory: No Migraines: Yes Radiation Therapy: No Sleep Apnea: No Thyroid Disease: Yes Triglycerides - High: Yes Influenza Vaccination: No ?: Not Past Surgical History Abdominal Surgery: Yes (COLON RESECTION) Oral Surgery: Yes (TONSILLECTOMY) Tympanostomy Tube: Yes Other Surgery: Yes (NASAL RECONSTRUCTION) Social History Alcohol Use: No Tobacco Use: No Substance Use: No Allergies-Medications (Allergen,Severity, Reaction): Coded Allergies: Sulfa (Sulfonamide Antibiotics) (Unverified Allergy, Intermediate, HIVES, 05/15/18) Reported Meds & Prescriptions Reported Meds & Active Scripts Active Reported Flonase Sensimist (Fluticasone Furoate) 27.5 Mcg/Actuation [place].susp 1 Spr NASAL DAILY Potassium Citrate ER (Potassium Citrate) 5 Meq (540 Mg) Tablet.er 10 Meq PO BID Eliquis (Apixaban) 5 Mg Tab 5 Mg PO BID Clonazepam 1 Mg Tab 1 Mg PO TID Trazodone (Trazodone HCl) 100 Mg Tablet 200 Mg PO HS Tramadol (Tramadol HCl) 50 Mg Tab 50 Mg PO Q8H Aldactone (Spironolactone) 50 Mg Tab 100 Mg PO DAILY Omeprazole 20 Mg Tab 20 Mg PO DAILY Multiple Vitamin 1 Tab 1 Tab PO DAILY Montelukast (Montelukast Sodium) 10 Mg Tab 10 Mg PO HS Metformin (Metformin HCl) 500 Mg Tab 500 Mg PO BIDPC Magnesium 250 Mg Tab Levothyroxine (Levothyroxine Sodium) 50 Mcg Tab 50 Mcg PO DAILY Fluoxetine (Fluoxetine HCl) 20 Mg Tab 20 Mg PO BID Divalproex ER (Divalproex Sodium) 500 Mg Tab 500 Mg PO DAILY Vitamin D-1000 (Cholecalciferol) 1,000 Unit Tab 1,000 Units PO DAILY Flexeril (Cyclobenzaprine HCl) 10 Mg Tab 10 Mg PO BID Clonidine (Clonidine HCl) 0.1 Mg Tab 0.1 Mg PO HS Clonazepam 1 Mg Tab 1 Mg PO TID Bupropion HCl ER 24 HR (Bupropion HCl) 300 Mg Tab 300 Mg PO DAILY Review of Systems General / Constitutional: No: Fever Eyes: No: Visual changes HENT: No: Headaches Cardiovascular: No: Chest Pain or Discomfort Respiratory: No: Shortness of Breath Gastrointestinal: Positive: Abdominal Pain Genitourinary: No: Dysuria Musculoskeletal: No: Pain Skin: No Rash Neurologic: No: Weakness Psychiatric: No: Depression Endocrine: No: Polydipsia Hematologic/Lymphatic: No: Easy Bruising Physical Exam Narrative GENERAL: Well-nourished, well-developed patient in no apparent distress. SKIN: Focused skin assessment reveals no rash and nodules. Skin is Warm and dry. HEAD: Atraumatic. Normocephalic. EYES: Pupils equal and round. No scleral icterus. No injection or drainage. ENT: No nasal bleeding or discharge. Mucous membranes pink and moist. NECK: Trachea midline. No JVD. CARDIOVASCULAR: Regular rate and rhythm. No murmur appreciated. RESPIRATORY: No accessory muscle use. Clear to auscultation. Breath sounds equal bilaterally. GASTROINTESTINAL: Abdomen soft, left lower quadrant is tender without rebound or guarding , nondistended. Hepatic and splenic margins not palpable. MUSCULOSKELETAL: No obvious deformities. No clubbing. No cyanosis. No edema. NEUROLOGICAL: Awake and alert. No obvious cranial nerve deficits. Motor grossly within normal limits. Normal speech. PSYCHIATRIC: Appropriate mood and affect; insight and judgment normal. Data Data Last Documented VS Vital Signs Date Time Temp Pulse Resp B/P (MAP) Pulse Ox O2 Delivery O2 Flow Rate FiO2 05/15/18 12:37 98.5 101 18 155/87 (109) 99 Orders Orders Urinalysis - C+S If Indicated (05/15/18 12:45) Basic Metabolic Panel (Bmp) (05/15/18 13:06) Complete Blood Count With Diff (05/15/18 13:06) Ct Abd/Pel W Iv Contrast(Rout) (05/15/18 13:06) Iv Access Insert/Monitor (05/15/18 13:06) NPO (05/15/18 13:06) Sodium Chloride 0.9% Flush (Ns Flush) (05/15/18 13:15) Urine Culture (05/15/18 12:45) Iohexol 350 Inj (Omnipaque 350 Inj) (05/15/18 14:10) Labs Laboratory Tests Test 05/15/18 12:45 05/15/18 13:17 Urine Collection Type CLEAN CATCH Urine Color YELLOW Urine Turbidity CLEAR Urine pH 6.5 Urine Specific [place] 1.025 Urine Protein NEG mg/dL Urine Glucose (UA) NEG mg/dL Urine Ketones NEG mg/dL Urine Occult Blood NEG Urine Nitrite NEG Urine Bilirubin NEG Urine Urobilinogen 0.2 MG/DL Urine Leukocyte Esterase SMALL Urine WBC 25-49 /hpf Urine WBC Clumps RARE Urine Squamous Epithelial Cells 3-5 /hpf Urine Bacteria FEW /hpf Urine Mucus RARE /lpf Microscopic Urinalysis Comment CULTURE INDICATED White Blood Count 6.7 TH/MM3 Red Blood Count 4.29 MIL/MM3 Hemoglobin 11.1 GM/DL Hematocrit 35.7 % Mean Corpuscular Volume 83.3 FL Mean Corpuscular Hemoglobin 25.8 PG Mean Corpuscular Hemoglobin Concent 30.9 % Red Cell Distribution Width 16.3 % Platelet Count 245 TH/MM3 Mean Platelet Volume 7.6 FL Neutrophils (%) (Auto) 66.0 % Lymphocytes (%) (Auto) 24.1 % Monocytes (%) (Auto) 7.1 % Eosinophils (%) (Auto) 2.0 % Basophils (%) (Auto) 0.8 % Neutrophils # (Auto) 4.4 TH/MM3 Lymphocytes # (Auto) 1.6 TH/MM3 Monocytes # (Auto) 0.5 TH/MM3 Eosinophils # (Auto) 0.1 TH/MM3 Basophils # (Auto) 0.1 TH/MM3 CBC Comment DIFF FINAL Differential Comment Blood Urea Nitrogen 11 MG/DL Creatinine 0.89 MG/DL Random Glucose 95 MG/DL Calcium Level 8.7 MG/DL Sodium Level 140 MEQ/L Potassium Level 3.9 MEQ/L Chloride Level 105 MEQ/L Carbon Dioxide Level 29.2 MEQ/L Anion Gap 6 MEQ/L Estimat Glomerular Filtration Rate 66 ML/MIN MDM Medical Decision Making Medical Screen Exam Complete: Yes Emergency Medical Condition: Yes Medical Record Reviewed: Yes Differential Diagnosis Colitis, ileus, obstruction Narrative Course I have reviewed the patient's electronic medical record. IV placed and labs sent CT of abdomen and pelvis shows nothing acute or emergent. There are 2 incidental findings. She knew about the right-sided obstructing kidney stone. She also has a nonspecific right adnexal cyst. We discussed them both and she should discuss with her physician. CBC and metabolic studies are normal. Her urine will be cultured. Treatment will be based on culture and not empirically she has no urinary symptoms Diagnosis Primary Impression: Abdominal pain Qualified Codes: R10.32 - Left lower quadrant pain Additional Impression: Ulcerative colitis, chronic Qualified Codes: K51.919 - Ulcerative colitis, unspecified with unspecified complications Additional Instructions: The patient was advised to follow up with their physician and return if they worsen. Med/Other Pt SpecificInfo: Other Disposition: 01 DISCHARGE HOME Condition: Stable Mika Hampton MD May 15, 2018 13:10
[2018-05-15] MEDS ORDERED: POTA540T PO (13:15)
[2018-05-15] MEDS ORDERED: CLON1TAB PO (13:15)
[2018-05-15] MEDS ORDERED: SODIUM CHLORIDE 0.9% FLUSH 10 ML FLUSH IV FLUSH PRN (13:15)
[2018-05-15] MEDS ORDERED: FLUT9.9S NASAL (13:15)
[2018-05-15] MEDS ORDERED: APIX5TAB PO (13:15)
[2018-05-15 13:22] LABS: AUTOMATED NEUTROPHIL # 4.4 TH/MM3 (1.8-7.7); BASOPHIL # 0.1 TH/MM3 (0-0.2); BASOPHIL % 0.8 % (0.0-2.0); EOSINOPHIL # 0.1 TH/MM3 (0-0.4); HEMATOCRIT 35.7 % (35.0-46.0); HEMOGLOBIN 11.1 GM/DL (11.6-15.3); LYMPH % 24.1 % (9.0-44.0); LYMPHOCYTE # 1.6 TH/MM3 (1.0-4.8); MEAN CELL VOLUME 83.3 FL (80.0-100.0); MEAN CORPUSCULAR HEMOGLOBIN 25.8 PG (27.0-34.0); MEAN CORPUSCULAR HGB CONC 30.9 % (32.0-36.0); MEAN PLATELET VOLUME 7.6 FL (7.0-11.0); MONO % 7.1 % (0.0-8.0); MONOCYTE # 0.5 TH/MM3 (0-0.9); PLATELET COUNT 245 TH/MM3 (150-450); RED BLOOD COUNT 4.29 MIL/MM3 (4.00-5.30); RED CELL DISTRIBUTION WIDTH 16.3 % (11.6-17.2); WHITE BLOOD COUNT 6.7 TH/MM3 (4.0-11.0)
[2018-05-15 13:54] LABS: BICARBONATE 29.2 MEQ/L (21.0-32.0); CALCIUM 8.7 MG/DL (8.5-10.1)
[2018-05-15 13:58] LABS: CREATININE 0.89 MG/DL (0.50-1.00)
[2018-05-15] MEDS ORDERED: IOHEXOL 350 MG/ML 10 ML VIAL (for RAD DIAG) IVCONTRAST ONE (14:10)
--- NOTE | 2018-05-15 14:35 | RADRPT ---
EXAM DATE: 05/15/2018 2:09 PM EDT AGE/SEX: 52 years / Female INDICATIONS: Left lower quadrant pain. Nausea. CLINICAL DATA: This is the patient's initial encounter. Patient reports that signs and symptoms have been present for 2 days and indicates a pain score of 8/10. MEDICAL/SURGICAL HISTORY: Deep venous thrombosis. Gastroesophageal reflux disease. Renal calc jean. Diverticulitis. Ulcerative colitis. Colon resection. ORAL CONTRAST: No oral contrast ingested. RADIATION DOSE: 20.99 CTDI (mGy) COMPARISON: No prior exams available for comparison. TECHNIQUE: Multiple contiguous axial images were obtained through the abdomen and pelvis following b olus infusion of 90 ml Omnipaque 350 (iohexol) nonionic water-soluble contrast as a single exam dos e. No oral contrast ingested. Using automated exposure control and adjustment of the mA and/or kV ac cording to patient size, the radiation dose was kept as low as reasonably achievable to obtain optima l diagnostic quality images. FINDINGS: Minimal dependent atelectasis in the lungs. No acute findings in the liver, spleen, adrenals or pancr eas. Small left renal cysts. Nonobstructing calculus midpole right kidney measuring about 4 mm in manolo meter. There is no free fluid. No bowel obstruction. No adenopathy. There is a 3.3 cm right adnexal cyst. CONCLUSION: 1. No acute findings. 3.3 cm right adnexal cyst. 4 mm nonobstructing right renal calculus. Electronically signed by: Chucho Larson MD 05/15/2018 2:33 PM EDT
== END 2018-05-15 15:11 | disposition home or self-care (01) ==
LOC: PHED 12:27
DX: R10.32 Left lower quadrant pain (principal); K51.919 Ulcerative colitis, unspecified with unspecified complications; N20.0 Calculus of kidney; N83.201 Unspecified ovarian cyst, right side; F98.8 Other specified behavioral and emotional disorders with onset usually occurring in childhood and adolescence; M19.90 Unspecified osteoarthritis, unspecified site; D68.51 Activated protein C resistance; F41.9 Anxiety disorder, unspecified; F32.9 Major depressive disorder, single episode, unspecified; E78.00 Pure hypercholesterolemia, unspecified; I25.10 Atherosclerotic heart disease of native coronary artery without angina pectoris; M79.7 Fibromyalgia; K21.9 Gastro-esophageal reflux disease without esophagitis; F43.10 Post-traumatic stress disorder, unspecified; E28.2 Polycystic ovarian syndrome; E07.9 Disorder of thyroid, unspecified; E78.1 Pure hyperglyceridemia; Z79.899 Other long term (current) drug therapy; Z88.2 Allergy status to sulfonamides; Z86.711 Personal history of pulmonary embolism; Z86.718 Personal history of other venous thrombosis and embolism; Z87.442 Personal history of urinary calculi
CPT/HCPCS: 74177; 80048; 81001; 85025; 87086; 99284; Q9967